=== PATIENT | female | born 1965 | race Caucasian/White ===

== ENCOUNTER → 2017-07-10 | Outpatient (CLI) | payer OTHER ==
--- NOTE | 2017-07-10 22:18 | RAD ---
EXAM DESCRIPTION: UGI: Fluoroscopy. CLINICAL HISTORY: GERD. Bariatric sleeve placement, now severe reflux, has to sleep sitting up. COMPARISON: None TECHNIQUE: Preliminary [employer] judicial assistant radiograph. The patient swallowed heavy-density barium under fluoroscopic visualization standing. Patient also drank medium-density barium through a straw, prone position. The images were obtained with the patient upright and horizontal. 11 fluoroscopic images taken. 12 cine loops. Permanent images of this procedure are stored in the patient's medical record. Fluoroscopy time was 2.6 minutes. Cumulative dose: 98.8 mGy. FINDINGS: Normal primary peristaltic wave in the esophagus with no significant mucosal lesions. No mass effect. Medium sliding hiatal hernia (RF sequence 11, images 1 and 2).. Spontaneous marked gastroesophageal reflux in the supine position to the level of the thoracic inlet (RF sequence 10-2, images 1 and 2). Also noticed when rolling in the horizontal position. Reflux not as notable with coughing and Valsalva maneuver. The fundus and proximal body of the stomach are narrowed by the sleeve. No contrast extravasation. Remainder of the stomach showing no mass effect or mucosal lesions. Duodenal bulb and the remainder of the duodenum are unremarkable except for a diverticulum in the third portion of the duodenum. No contrast extravasation. IMPRESSION: 1. Marked gastroesophageal reflux spontaneously in the supine position, and rolling in the horizontal position. Moderate hiatal hernia. 2. Gastric sleeve maintains mass effect on the proximal stomach. Distal stomach is unremarkable.. Electronically signed by: Tej Winters MD 07/10/2017 10:17 PM [employer]IK[employer] Workstation: [id number]
== END | disposition home or self-care (01) ==
LOC: RAD 08:41
PROVIDERS: ATTEND Surgery
DX: R13.10 Dysphagia, unspecified (principal); R12 Heartburn; K21.9 Gastro-esophageal reflux disease without esophagitis